=== PATIENT | male | born 1950 | race Caucasian/White ===

== ENCOUNTER 2017-09-10 12:45 | Emergency (ER) | payer MEDICARE ==
[~2017-09-10] VITALS: Ht 188 cm; Wt 93.0 kg
[2017-09-10 12:45] VITALS: BP 170/78; PULSE 80; RESP 16; TEMP 98; O2SAT 98
[~2017-09-10 12:45] MED LIST: Z.0.NO CURRENT MEDS
--- NOTE | 2017-09-10 13:58 | PD ---
HPI Chief Complaint: Fall Time Seen by Provider: 13:44 Travel History International Travel<30 days: No Contact w/Intl Traveler<30days: No Traveled to known affect area: No History of Present Illness HPI 67-year-old male presents emergency department with left posterior lateral thoracic pain since falling yesterday. Patient states his flip-flop blew out yesterday when he fell striking this area on the ground. Patient states pain is worse with certain movements and deep breath or cough. There is an area of bruising noted. He denies significant shortness of breath. He denies any other injury. His pain is 8 out of 10 and worse with movement cough and deep breath. He has no known drug allergies. [facility] Social History Alcohol Use: Yes (6 PACK A DAY) Tobacco Use: Yes (1 PACK A DAY) Allergies-Medications (Allergen,Severity, Reaction): Coded Allergies: No Known Allergies (Verified Allergy, Mild, 06/22/06) Reported Meds & Prescriptions Reported Meds & Active Scripts Active Reported No Current Meds (Miscellaneous Medication) Misc Review of Systems Except as stated in HPI: all other systems reviewed are Neg General / Constitutional: No: Fever Eyes: No: Visual changes HENT: No: Headaches Cardiovascular: No: Chest Pain or Discomfort Respiratory: No: Shortness of Breath Gastrointestinal: No: Abdominal Pain Genitourinary: No: Dysuria Musculoskeletal: No: Pain Skin: No Rash Neurologic: No: Weakness Psychiatric: No: Depression Endocrine: No: Polydipsia Hematologic/Lymphatic: No: Easy Bruising Physical Exam Narrative GENERAL: Patient appears in mild to moderate distress per SKIN: Warm and dry. Normal color. Normal turgor. There is an area of ecchymosis over the left posterior lateral lower rib cage at the T7-8 level. Patient has point tenderness in this area. He has no subcutaneous air. He has noted crepitus. HEAD: Atraumatic. Normocephalic. EYES: Pupils equal and round. No scleral icterus. No injection or drainage. ENT: No nasal bleeding or discharge. Mucous membranes pink and moist. Pharynx is clear. Airways patent. NECK: Trachea midline. No JVD. CARDIOVASCULAR: Regular rate and rhythm. RESPIRATORY: No accessory muscle use. Clear to auscultation. Breath sounds equal bilaterally. GASTROINTESTINAL: Abdomen soft, non-tender, nondistended. Hepatic and splenic margins not palpable. MUSCULOSKELETAL: Extremities without clubbing, cyanosis, or edema. No obvious deformities. NEUROLOGICAL: Awake and alert. No obvious cranial nerve deficits. Motor grossly within normal limits. Five out of 5 muscle strength in the arms and legs. Normal speech. PSYCHIATRIC: Appropriate mood and affect; insight and judgment normal. Data Data Last Documented VS Vital Signs Date Time Temp Pulse Resp B/P (MAP) Pulse Ox O2 Delivery O2 Flow Rate FiO2 09/10/17 12:45 98.0 80 16 170/78 (108) 98 Orders Orders Ribs, Uni (W/Exp Cxr-Min 3vw) (09/10/17 13:47) [facility] Medical Decision Making Medical Screen Exam Complete: Yes Emergency Medical Condition: Yes Differential Diagnosis Accidental trip and fall. Thoracic wall contusion. Rib fracture. Rib pain. Narrative Course Patient is medically stable at time of exam. X-rays of the left ribs and chest were ordered. No acute rib fracture is seen. Patient is given ibuprofen 600 mg 4 times daily #40. Patient is also given Lortab 5/325 one every 6 hours as needed pain #12. Patient is to use ice to the area frequently and follow-up as needed Diagnosis Primary Impression: Contusion of rib on left side Qualified Codes: S20.212A - Contusion of left front wall of thorax, initial encounter Patient Instructions: General Instructions, Rib Contusion (ED) Additional Instructions: No acute rib fracture is seen. Patient is given ibuprofen 600 mg 4 times daily #40. Patient is also given Lortab 5/325 one every 6 hours as needed pain #12. Patient is to use ice to the area frequently and follow-up as needed Med/Other Pt SpecificInfo: Prescription(s) given Disposition: 01 DISCHARGE HOME Condition: Stable Darrian Lr Sep 10, 2017 13:58
--- NOTE | 2017-09-10 14:37 | RADRPT ---
EXAM DATE/TIME: 09/10/2017 14:11 [place] COMPARISON: No previous studies available for comparison. INDICATIONS : Pt states he fell on 09/08/2017 and landed on a coffee table. Pt pain if still and silent is a 5/10 a nd becomes a 10/10 when speaking and laying down. MEDICAL HISTORY : None. SURGICAL HISTORY : None. ENCOUNTER: Initial ACUITY: 3 days PAIN SCORE: 5/10 LOCATION: Left chest Left Lower Ribs FINDINGS: Multiple views of the left ribs were performed. There is no evidence of displaced fracture. No dest ructive lesions or areas of periosteal thickening are seen. Multiple old healed fractures of left ri bs are noted. Scoliosis and degenerative changes of the thoraco-lumbar spine are noted. Expiratory vi ew of the chest is negative for pneumothorax. The mediastinal structures are midline. CONCLUSION: 1. No acute fracture or dislocation of the left ribs. 2. Multiple old healed fractures of left ribs are noted. 3. Scoliosis and degenerative changes of the thoracolumbar spine are noted. Kashif Mcpherson MD on September 10, 2017 at 14:33 Board Certified Radiologist. This report was verified electronically.
[2017-09-10] MEDS ORDERED: IBUP-232 PO (14:53)
[2017-09-10] MEDS ORDERED: HYDR-3516 PO (14:53)
== END 2017-09-10 15:27 | disposition home or self-care (01) ==
LOC: NEPD 12:45
DX: S20.212A Contusion of left front wall of thorax, initial encounter (principal); W01.0XXA Fall on same level from slipping, tripping and stumbling without subsequent striking against object, initial encounter; F17.210 Nicotine dependence, cigarettes, uncomplicated
CPT/HCPCS: 71101; 99283